=== PATIENT | male | born 1985 | race Caucasian/White ===

== ENCOUNTER → 2021-01-14 15:53 | Outpatient (CLI) | payer SELFPAY, OTHER ==
--- NOTE | 2021-01-14 15:55 | MRI_ITS ---
STUDY: MRI LUMBAR SPINE WITHOUT CONTRAST REASON FOR EXAM: Male, 35 years old. pain low back pain TECHNIQUE: Standardized fat and water weighted pulse sequences were obtained in the sagittal and axial planes. COMPARISON: None FINDINGS: T12-L1: Normal endplates. Normal disc height, hydration and morphology. Normal bilateral facet joints. Normal central canal and bilateral lateral recesses. Normal bilateral intervertebral neural foramina. Normal lumbar lordosis. There is no substantial scoliosis. Normal conus medullaris that terminates at the T12-L1 level. L1-2: Normal endplates. Normal disc height, hydration and morphology. Normal bilateral facet joints. Normal central canal and bilateral lateral recesses. Normal bilateral intervertebral neural foramina. L2-3: Mildly degenerated endplates. Normal disc height, hydration and morphology. Normal bilateral facet joints. Normal central canal and bilateral lateral recesses. Normal bilateral intervertebral neural foramina. L3-4: Mildly degenerated endplates. Normal disc height, hydration and morphology. Normal bilateral facet joints. Normal central canal and bilateral lateral recesses. Normal bilateral intervertebral neural foramina. L4-5: Normal endplates. Decreased disc height, decreased hydration and degenerative morphology. Normal bilateral facet joints. There is right asymmetric disc bulge. Normal central canal and bilateral lateral recesses. Mild to moderate left and mild right foraminal stenosis. There is remote left laminotomy and microdiscectomy without residual or recurrent herniation. L5-S1: Mildly degenerated endplates. Normal disc height, hydration and morphology. Normal bilateral facet joints. Normal central canal and bilateral lateral recesses. Normal bilateral intervertebral neural foramina. Normal visualized sacral ala. Normal visualized paraspinous soft tissue structures. MRI/Spine Lumbar (Routine) IMPRESSION: 1. Patent canal. No neural compression. 2. SPECT appearance of remote left L4-L5 laminotomy without residual/recurrent disc herniation. Electronically Signed: Franca Ayala MD at 17:09 EDT Tel , Service support ,
== END ==
PROVIDERS: Referring Provider Orthopaedic Surgery; Visit Provider Orthopaedic Surgery
DX: M51.26 Other intervertebral disc displacement, lumbar region (principal)
CPT/HCPCS: 72148